=== PATIENT | female | born 1960 | race Caucasian/White ===

== ENCOUNTER 2018-01-30 08:02 | Day surgery (SDC) | payer MEDICARE, SELFPAY ==
[~2018-01-30] VITALS: Ht 160 cm; Wt 72.6 kg
[~2018-01-30 08:02] MED LIST: CYCL10 PO; MELO7.5 PO; METO25ER PO; Naproxen250 MG PO; ONDA4ODT MM; TRAM50 PO
[2018-01-31 04:47] LABS: BASOPHILS ABSOLUTE AUTO 0.01 K/mm3 (0.00-0.23); BASOPHILS PERCENT AUTO 0 % (0-2); EOSINOPHILS PERCENT AUTO 0 % (0-6); Hematocrit 32.9 % (33.0-51.0); Hemoglobin 10.8 g/dL (11.5-16.0); IMMATURE GRAN ABSOLUTE AUTO 0.04 K/mm3 (0.00-0.10); IMMATURE GRAN PERCENT AUTO 0 % (0-1); LYMPHOCYTES ABSOLUTE AUTO 1.18 K/mm3 (0.84-5.20); LYMPHOCYTES PERCENT AUTO 11 % (21-46); MONOCYTES ABSOLUTE AUTO 0.76 K/mm3 (0.16-1.47); MONOCYTES PERCENT AUTO 7 % (4-13); Mean Corpuscular HGB 28.6 pg (26.0-34.0); Mean Corpuscular HGB Conc 32.8 g/dL (31.5-36.5); Mean Corpuscular Volume 87 fL (80-100); Mean Platelet Volume 9.8 fL (9.1-12.4); NEUTROPHILS ABSOLUTE AUTO 9.24 K/mm3 (1.96-9.15); NEUTROPHILS PERCENT AUTO 82 % (41-73); Platelet Count 221 K/mm3 (150-400); RDW Coefficient Variation 13.2 % (11.7-14.2); RDW Standard Deviation 41.2 fL (35.1-46.3); Red Blood Cell Count 3.78 M/mm3 (3.80-5.20); White Blood Cell Count 11.23 K/mm3 (4.00-11.30)
[2018-01-31 05:08] LABS: Anion Gap 6 mmol/L (6-16); Blood Urea Nitrogen 9 mg/dL (8-24); CO2, Blood 28 mmol/L (21-32); Calcium, Blood 8.8 mg/dL (8.5-10.1); Chloride, Blood 104 mmol/L (98-108); Creatinine, Blood 0.56 mg/dL (0.40-1.00); Glomerular Filtration Rate >60 (60-); Glucose, Blood 159 mg/dL (70-99); Magnesium, Blood 2.1 mg/dL (1.6-2.4); Sodium, Blood 138 mmol/L (136-145)
[2018-01-31] MEDS ORDERED: ACET325 PO (08:09)
[2018-01-31] MEDS ORDERED: OXYC5 PO (08:10)
[2018-01-31] MEDS ORDERED: ASPI325EC PO (08:10)
== END 2018-01-31 19:37 | disposition home or self-care (01) ==
LOC: ORSCMMR 08:02 → ORD 10:15 → ORSCMMR 10:15 → SURS 13:34 → ORSCMMR 01-31 19:37
PROVIDERS: Orthopaedic Surgery
PROC: 0SRC0J9 Replacement of Right Knee Joint with Synthetic Substitute, Cemented, Open Approach (ICD-10-PCS; principal; 2018-01-30 10:15)
DX: M17.11 Unilateral primary osteoarthritis, right knee (principal); I10 Essential (primary) hypertension; Z79.899 Other long term (current) drug therapy
CPT/HCPCS: 36415; 73560-RT; 80048; 82947; 83735; 85025; 88300; 97110; 97116; 97161; 97530; C1713; C1776; G8978; G8979; J0171; J0690; J0735; J1100; J1885; J2250; J2405; J2795; J3010; J7120; Q0163

== ENCOUNTER 2023-03-21 13:13 | Day surgery (SDC) | payer MEDICARE ==
[~2023-03-21] VITALS: Ht 157.5 cm; Wt 78.8 kg
[~2023-03-21 13:13] MED LIST changes: +ACET325 PO; +ASPI325EC PO; +OXYC5 PO
--- NOTE | 2023-03-21 14:08 | NUR ---
03/21/23 1408 Nubia Swenson CALL LIGHT WITHIN REACH.
--- NOTE | 2023-03-21 16:38 | NUR ---
03/21/23 1638 Jayne Martínez HEAD ON PILLOW, ARMS SECURED ON PADDED ARM BOARDS,SEAT BELT ON AND SECURE, RIGHT LEG POSITONED BY DR GARZA IN [facility].
[2023-03-21 17:59] VITALS: BP 137/89
== END 2023-03-21 18:12 | disposition home or self-care (01) ==
LOC: ORSCSDS 13:13
PROVIDERS: Podiatrist Foot & Ankle Surgery
PROC: 0SBF4ZZ Excision of Right Ankle Joint, Percutaneous Endoscopic Approach (ICD-10-PCS; principal; 2023-03-21 15:00)
PROC: 0L8N0ZZ Division of Right Lower Leg Tendon, Open Approach (ICD-10-PCS; principal; 2023-03-21 15:00)
DX: M24.571 Contracture, right ankle (principal); M24.071 Loose body in right ankle; I10 Essential (primary) hypertension; J45.909 Unspecified asthma, uncomplicated; E78.5 Hyperlipidemia, unspecified; Z79.899 Other long term (current) drug therapy
CPT/HCPCS: J0171; J0690; J1100; J1885; J2250; J2405; J2704; J2795; J3010; J7120